=== PATIENT | female | born 1960 | race American Indian/Alaskan Native ===

== ENCOUNTER 2020-02-07 15:31 | Emergency (ER) | payer SELFPAY ==
--- NOTE | 2020-02-07 20:21 | Emergency Department Report ---
Blank Doc - Documentation Documentation: 59-year-old female that presents with syncopal episode questionable SZ. This initial assessment/diagnostic orders/clinical plan/treatment(s) is/are subject to change based on patient's health status, clinical progression and re- assessment by fellow clinical providers in the ED. Further treatment and workup at subsequent clinical providers discretion. Patient/guardians urged not to elope from the ED as their condition may be serious if not clinically assessed and managed. Initial orders include: 1- Patient sent to [facility] for further evaluation and treatment 2- cardiac workup
[2020-02-07 21:03] LABS: Basophils % (Auto) 0.3 % (0.0-1.8); Eosinophils # (Auto) 0.1 K/mm3 (0.0-0.4); Eosinophils % (Auto) 0.4 % (0.0-4.3); Hematocrit 47.8 % (30.3-42.9); Hemoglobin 15.9 gm/dl (10.1-14.3); Lymphocytes # (Auto) 4.5 K/mm3 (1.2-5.4); Lymphocytes % (Auto) 26.9 % (13.4-35.0); Mean Corpuscular HGB Conc 33 % (30-34); Mean Corpuscular Volume 91 fl (79-97); Monocytes # (Auto) 0.8 K/mm3 (0.0-0.8); Monocytes % (Auto) 4.8 % (0.0-7.3); Platelet Count 338 K/mm3 (140-440); Red Blood Count 5.26 M/mm3 (3.65-5.03); Red Cell Distribution Width 14.9 % (13.2-15.2)
[2020-02-07 21:11] LABS: INR 0.98 (0.87-1.13)
[2020-02-07 21:12] LABS: Partial Thromboplastin Time 23.6 Sec. (24.2-36.6)
--- NOTE | 2020-02-07 21:19 | XRay Report ---
CHEST 2 VIEWS INDICATION / CLINICAL INFORMATION: Chest Pain. COMPARISON: None available. FINDINGS: SUPPORT DEVICES: None. HEART / MEDIASTINUM: No significant abnormality. LUNGS / PLEURA: No significant pulmonary or pleural abnormality. No pneumothorax. ADDITIONAL FINDINGS: No significant additional findings. IMPRESSION: 1. No acute findings. Signer Name: Bruce Elizalde MD Signed: 02/07/2020 9:15 PM Workstation Name: [id number]
[2020-02-07 21:24] LABS: Alanine Aminotransferase 26 units/L (7-56); Albumin 4.4 g/dL (3.9-5); BUN/Creatinine Ratio 10; Blood Urea Nitrogen 8 mg/dL (7-17); Calcium 9.3 mg/dL (8.4-10.2); Hemolysis Index 10
--- NOTE | 2020-02-07 22:09 | Emergency Department Report ---
ED Syncope HPI - General Chief Complaint: Seizure Stated Complaint: SEIZURE Time Seen by Provider: 02/07/20 20:19 - History of Present Illness Initial Comments: Patient is 59 years old female with no significant past medical history. Patient brought to the emergency room via EMS from home for evaluation of syncopal episode. Patient stated that she does not remember what happened. She stated that she was picking up her grandkids and she passed out and when she woke up she found herself in an ambulance coming to the emergency room. Patient denied any prior history. Patient is currently alert, oriented x3 and complaining of left upper quadrant pain. Patient denied any fever or chills. Patient also denied any neck pain, weakness numbness or tingling sensation. Timing/Prior Episodes: no prior history, single episode today Precipitating Factors: Positive: none Context: standing Loss of Consciousness: prolonged (minutes) - Related Data Allergies/Adverse Reactions: Allergies acetaminophen [From Percocet] Allergy (Verified 02/07/20 20:12) Unknown oxycodone [Oxycodone] Allergy (Verified 02/07/20 16:07) Rash Home Medications: Ambulatory Orders Acetaminophen [Tylenol Arthritis] 650 mg PO 06/06/13 Albuterol Sulfate [Ventolin HFA] 2 puff IH Q4H PRN #1 hfa.aer.ad 06/06/13 Amoxicillin [Trimox CAP] 1,000 mg PO BID #40 capsule 06/06/13 Fluticasone Propionate [Flonase] 2 spray NS QDAY #1 spray.susp 06/06/13 Hydrocodone Bit/Acetaminophen [Lortab 5-500 Tablet] 1 each PO Q4-6H PRN #12 tablet 06/06/13 Naproxen [Naprosyn] 500 mg PO BID 06/06/13 Prednisone 40 mg PO QDAY #10 tablet 06/06/13 traMADoL [Ultram] 50 mg PO Q6HR PRN 06/06/13 ED Review of Systems ROS: Stated complaint: SEIZURE Other details as noted in HPI Comment: All other systems reviewed and negative Constitutional: denies: chills, fever Respiratory: denies: cough, shortness of breath, SOB with exertion, SOB at rest Cardiovascular: denies: chest pain, palpitations Gastrointestinal: abdominal pain. denies: nausea, vomiting, diarrhea, constipation, hematemesis, melena, hematochezia Musculoskeletal: denies: back pain Neurological: denies: headache ED Past Medical Hx - Past Medical History Previous Medical History?: No - Surgical History Past Surgical History?: No - Social History Smoking Status: Current Every Day Smoker Substance Use Type: Alcohol - Medications Home Medications: Home Medications Medication Instructions Recorded Confirmed Last Taken Type Acetaminophen [Tylenol Arthritis] 650 mg PO 06/06/13 06/06/13 Unknown History Albuterol Sulfate [Ventolin HFA] 2 puff IH Q4H PRN #1 hfa.aer.ad 06/06/13 Unknown Rx Amoxicillin [Trimox CAP] 1,000 mg PO BID #40 capsule 06/06/13 Unknown Rx Fluticasone Propionate [Flonase] 2 spray NS QDAY #1 spray.susp 06/06/13 Unknown Rx Hydrocodone Bit/Acetaminophen 1 each PO Q4-6H PRN #12 tablet 06/06/13 Unknown Rx [Lortab 5-500 Tablet] Naproxen [Naprosyn] 500 mg PO BID 06/06/13 06/06/13 Unknown History Prednisone 40 mg PO QDAY #10 tablet 06/06/13 Unknown Rx traMADoL [Ultram] 50 mg PO Q6HR PRN 06/06/13 06/06/13 Unknown History ED Physical Exam - General Limitations: No Limitations General appearance: alert, in no apparent distress - Head Head exam: Present: atraumatic, normocephalic, normal inspection - Eye Eye exam: Present: normal appearance, PERRL - ENT ENT exam: Present: normal exam, normal orophraynx, mucous membranes moist - Neck Neck exam: Present: normal inspection, full ROM. Absent: tenderness, meningismus, lymphadenopathy, thyromegaly - Respiratory Respiratory exam: Present: normal lung sounds bilaterally - Cardiovascular Cardiovascular Exam: Present: regular rate, normal rhythm, normal heart sounds - GI/Abdominal GI/Abdominal exam: Present: soft, normal bowel sounds. Absent: distended, tenderness, guarding, rebound, rigid, organomegaly, mass, bruit, pulsatile mass, hernia - Extremities Exam Extremities exam: Present: normal inspection, full ROM, normal capillary refill. Absent: tenderness, pedal edema, joint swelling, calf tenderness - Back Exam Back exam: Present: normal inspection, full ROM. Absent: CVA tenderness (R), CVA tenderness (L), muscle spasm, paraspinal tenderness, vertebral tenderness - Neurological Exam Neurological exam: Present: alert, oriented X3, CN II-XII intact, normal gait, reflexes normal. Absent: motor sensory deficit - Psychiatric Psychiatric exam: Present: normal mood - Skin Skin exam: Present: warm, intact, normal color ED Course Vital Signs 02/07/20 02/07/20 16:56 22:07 Temperature 98.5 F 98.1 F Pulse Rate 102 H 76 Respiratory 18 16 Rate Blood Pressure 152/92 Blood Pressure 131/82 [Right] O2 Sat by Pulse 98 98 Oximetry ED Medical Decision Making - Lab Data Result diagrams: 02/07/20 20:42 02/07/20 20:42 - EKG Data -: EKG Interpreted by Ct EKG shows normal: sinus rhythm Rate: normal - EKG Data Interpretation: no acute changes - Radiology Data Radiology results: report reviewed - Medical Decision Making Patient is 59 years old female with no significant past medical history. Reji nt brought to the emergency room via EMS from home for evaluation of syncopal episode. Patient stated that she does not remember what happened. She stated that she was picking up her grandkids and she passed out and when she woke up she found herself in an ambulance coming to the emergency room. Patient denied any prior history. Patient is currently alert, oriented x3 and complaining of left upper quadrant pain. Patient denied any fever or chills. Patient also denied any neck pain, weakness numbness or tingling sensation. Labs reviewed and is unremarkable. EKG showed no ST elevation or any arrhythmia. Patient remained stable in the emergency room. Labs reviewed and is unremarkable including a negative troponin. CT brain is negative for acute finding. CT abdomen and pelvis is unremarkable. Differential diagnosis include syncope versus seizure. Patient strongly advised to follow-up with her primary care physician for referral to neurologist and cardiology for further manage ment. Patient advised to return to the ER if she develop any new symptoms. Critical care attestation.: If time is entered above; I have spent that time in minutes in the direct care of this critically ill patient, excluding procedure time. ED Disposition Clinical Impression: Syncope and collapse Disposition: DC-01 TO HOME OR SELFCARE Is pt being admited?: No Condition: Stable Instructions: Syncope (ED) Referrals: EARLENE HAMPTON MD [Referring] - 3-5 Days JULISSA VILLALTA DO [Staff Physician] - 3-5 Days
[2020-02-07 22:30] VITALS: BP 131/82
--- NOTE | 2020-02-07 23:23 | Cat Scan Report ---
CT head without contrast INDICATION : Syncope with headache. TECHNIQUE: Axial imaging performed from the skull apex through the skull base without the use of con trast. All CT examinations performed at this facility utilize dose modulation, iterative reconstruct ion or weight-based dosing, when appropriate, to reduce radiation dose to as low as reasonably achiev able. COMPARISON: None FINDINGS: No acute intracranial hemorrhage or parenchymal abnormality. Ventricles are normal in si ze and appear symmetric. Soft tissues including the orbits appear normal. No acute osseous abnorm ality. Sinuses and mastoid air cells are clear. IMPRESSION: No acute abnormality. Signer Name: Dany Matta MD Signed: 02/07/2020 11:18 PM Workstation Name: [email or web address]
--- NOTE | 2020-02-07 23:31 | Cat Scan Report ---
CT ABDOMEN AND PELVIS WITH IV CONTRAST INDICATION: Pt complains of LEFT sided flank pain. COMPARISON: None available. TECHNIQUE: Axial CT images were obtained through the abdomen and pelvis after 100 mL IV contrast. All CT scans a t this location are performed using CT dose reduction for ALARA by means of automated exposure contro l. FINDINGS -- ABDOMEN: Lung Bases: No acute abnormality. Liver: Normal. Gallbladder: Normal. Bile Ducts: Normal. Pancreas: Normal. Spleen: Normal. Adrenals: Normal. Right Kidney and Proximal Ureter: Normal. Left Kidney and Proximal Ureter: Normal. Stomach and Bowel: Normal. Lymph Nodes: No significant adenopathy. Aorta: The upper abdominal and lower thoracic aorta appears borderline dilated at 2.9 cm AP.. IVC: N ormal. Additional Findings: None. FINDINGS -- PELVIS: Urinary Bladder and Distal Ureters: Normal. Reproductive Organs: No acute abnormality. Appendix: Normal. Bowel: Sigmoid diverticulosis without diverticulitis.. Free Fluid: None. Lymph Nodes: No significant adenopathy. Additional Findings: None. Skeletal System: No acute abnormality. IMPRESSION: 1. No acute process in the abdomen or pelvis. Sigmoid diverticulosis without diverticulitis. Signer Name: Dany Matta MD Signed: 02/07/2020 11:27 PM Workstation Name: [id number]
== END 2020-02-08 | disposition home or self-care (01) ==
LOC: ED 15:31
DX: R55 Syncope and collapse (principal); R10.12 Left upper quadrant pain; F17.200 Nicotine dependence, unspecified, uncomplicated; Z79.2 Long term (current) use of antibiotics; Z79.899 Other long term (current) drug therapy; Z88.8 Allergy status to other drugs, medicaments and biological substances
CPT/HCPCS: 36415; 70450; 71046; 74177; 80053; 84484; 85025; 85610; 85730; 93005; 99285; Q9967